=== PATIENT | male | born 1965 | race Hispanic/Latino ===

== ENCOUNTER 2018-03-29 07:15 | Day surgery (SDC) | payer OTHER ==
[2017-02-07 15:46] VITALS: BMI 35.3
[2018-03-29] MEDS ORDERED: Propofol 10 mg/ml Inj (20 ML) ONE (10:45)
[2018-03-29 11:22] VITALS: TEMP 97.6
[2018-03-29 11:29] VITALS: O2SAT 100
[2018-03-29 11:50] VITALS: BP 118/73; PULSE 75; RESP 12
[2018-03-29] MEDS ORDERED: Lidocaine Hydrochloride 5 ML INJ ONE (11:52)
== END 2018-03-29 12:10 | disposition home or self-care (01) ==
LOC: C.ENDO 07:15
PROVIDERS: ATTEND Internal Medicine Gastroenterology
DX: K64.8 Other hemorrhoids (principal)
CPT/HCPCS: 45378; J2704

== ENCOUNTER 2018-10-10 06:26 | Day surgery (SDC) | payer OTHER ==
[2018-10-09 12:32] VITALS: BMI 29.5
[2018-10-10] MEDS ORDERED: Propofol 10 mg/ml Inj (20 ML) ONE (08:14)
--- NOTE | 2018-10-10 08:47 | CP.SDSHP ---
Same Day Surgery H & P - History Proposed Procedure: colonoscopy Pre-Op Diagnosis: screening - Allergies Allergies: Allergies No Known Allergies Allergy (Verified 10/10/18 06:51) - Physical Exam General Appearance: NAD Vital Signs: Vital Signs 10/10/18 06:52 Temperature 97.6 F Pulse Rate 90 Respiratory 19 Rate Blood Pressure 111/68 O2 Sat by Pulse 97 Oximetry Mental Status: Alert & Oriented x3 Neuro: WNL Heart: WNL Lungs: WNL GI: WNL - {Optional Preform as Required} Abdomen: WNL - Impression Pt. Evaluated Today:Candidate for Anesthesia & Procedure: Yes - Date & Time Date: 10/10/18 Time: 08:47 Short Stay Discharge - Short Stay Discharge Admitting Diagnosis/Reason for Visit: SCREENING Disposition: HOME/ ROUTINE
[2018-10-10 08:55] VITALS: O2SAT 100
[2018-10-10] MEDS ORDERED: Lactated Ringer's 1,000 ML IV SCH (09:00)
[2018-10-10 09:24] VITALS: TEMP 98.2
[2018-10-10 10:44] VITALS: BP 121/67; PULSE 78; RESP 15
== END 2018-10-10 10:40 | disposition home or self-care (01) ==
LOC: C.ENDO 06:26
PROVIDERS: ATTEND Internal Medicine Gastroenterology
DX: Z12.11 Encounter for screening for malignant neoplasm of colon (principal); K57.30 Diverticulosis of large intestine without perforation or abscess without bleeding; K64.0 First degree hemorrhoids
CPT/HCPCS: G0121; J2704; J3010; J7120